=== PATIENT | male | born 1950 | race Caucasian/White ===

== ENCOUNTER 2019-02-10 17:37 | Inpatient (IN) | payer MEDICARE ==
[~2019-02-10] VITALS: Ht 177.8 cm; Wt 78.0 kg
--- NOTE | ~2019-02-10 | CON ---
[place], [place] REPORT OF CONSULTATION [id number] UNIT #: [id number] ROOM: 312 DOCTOR: AMAURI VOGEL ED.D (RAMON) BIRTHDATE: [birth year] DOS: HISTORY OF PRESENT ILLNESS: The patient is a 68-year-old male referred by Dr. Juarez for an evaluation regarding his attention-deficit issues. At the present time, this patient is on the [facility] at [facility]. He states he is a , his having committed suicide when she was in her 30s. He does have one daughter. He formerly worked at a local [employer]. His medical history is pertinent for asthma, BPH, coronary artery disease, COPD, hypertension, history of myocardial infarction, migraine headaches, peripheral vascular disease, atrial fibrillation and bipolar 1 -- mixed. His psych medications at the present time include Latuda, Klonopin and Cymbalta. He denies any significant substance abuse issues. This patient was awake, alert and oriented in all three spheres. He was extremely manic throughout the interview. He indicated that he wanted to talk to me about possibly receiving medications for his hyperactivity. I did explain to the patient that prior to any type of an evaluation for hyperactivity, all of the issues regarding his bipolar disorder needed to be addressed. He is extremely manic at this time, which would mimic symptoms of hyperactivity, but most likely his issues are related to his bipolar disorder. He states that he understands my recommendation that we would not consider any type of additional medications until he is medically stable. He is probably going to a different facility once he is discharged from the hospital and following with outpatient psychotherapy. At that time, possibly an evaluation of his ADHD would be warranted; however, it is unlikely that he will actually meet criteria for ADHD. DIAGNOSIS: Bipolar 1 disorder -- mixed. RECOMMENDATIONS: In my opinion, this patient should not be given any additional medications for his hyperactivity due to the fact he is not medically stable regarding his bipolar disorder. Thank you very much for this consult. AMAURI VOGEL ED.D CM:CONSTR:REPORT OF CONSULTATION 144 02/11/191928 interface SOFIA JUAREZ MD
--- NOTE | ~2019-02-10 | WRIGHTHP ---
[place], [place] PATIENT HISTORY AND PHYSICAL EXAM NAME: JAMAL MONTE [facility] #: [id number] UNIT #: [id number] ROOM: 314 DOCTOR: SOFIA JUAREZ MD BIRTHDATE: [birth year] DOS: 02/11/2019 CHIEF COMPLAINT: "Oh Dr. Juarez this bipolar disorder is so difficult and I hate that [place], I don't want to go back to that hell [facility]." HISTORY OF PRESENT ILLNESS: This is a 68-year-old white male known to me from previous admissions here to the [facility] as well as his stay at [facility] in [place], [place]. The patient has a lengthy history of bipolar disorder and most lately he has been exhibiting signs of mixed bipolar. The patient of late has been increasingly irritable and angry, volatile and profane. He has been threatening to staff and has been threatening to himself. He has not been sleeping or eating well and he has voiced suicidal thoughts as well as homicidal thoughts. He is admitted now to rule out organic factors to attempt to stabilize on medication and to find alternative placement if necessary. PAST MEDICAL HISTORY: Remarkable for asthma, benign prostatic hyperplasia, coronary artery disease, COPD, hypertension, multiple myocardial infarctions, TIAs, hyperlipidemia, neuropathy, migraine headaches, osteoarthritis, atrial fibrillation, peripheral vascular disease and spinal stenosis. SOCIAL HISTORY: The patient socially does not use illicit drugs, smoke cigarettes or drink alcohol. ALLERGIES: LISTED TO OXYCODONE, AMPICILLIN, SULFA AND PENICILLINS. STRENGTHS: Good verbal skills, ambulatory. WEAKNESSES: Chronic mental health issues, poor coping skills. MENTAL STATUS: He is alert and oriented to person, place, and time. Mood is mixed. Initially during my interview he was very depressed and sullen. He quickly became hyperverbal and almost pressured jumping from topic to topic with multiple questions being asked. He does exhibit signs of both depression and chely. There is no gross psychosis. There are no auditory or visual hallucinations. No delusions, no paranoia. Memory for the most part is intact. DIAGNOSES: Bipolar type 1, mixed state. PLAN: I have already discontinued his Seroquel in lieu of Latuda 40 mg at bedtime, which I will now doubled to 80 mg at bedtime. I will restart him on his Klonopin. He had done extremely well with this in the past. It helped both with anxiety and mood stability. I will increase Klonopin now to 1 mg t.i.d. He also reports having done very well with the antidepressant Cymbalta. I will restart Cymbalta 30 mg at bedtime. He offers many complaints of pain, especially now in his neck and back. I will go ahead and order Zostrix high potency cream t.i.d. and defer to the hospitalist for any further management. PT, OT will be consulted and psychological testing will be done. [place], [place] PATIENT HISTORY AND PHYSICAL EXAM NAME: JAMAL MONTE [facility] UNIT #: [id number] ROOM: [facility] DOCTOR: SOFIA JUAREZ MD BIRTHDATE: [birth year] SOFIA JUAREZ MD CM:HISPHYS:PATIENT HISTORY AND PHYSICAL EXAMINATION 7 7 SOFIA JUAREZ MD 02/11/1939 interface
--- NOTE | ~2019-02-10 | PR ---
[place], [place] PROGRESS NOTE [id number] UNIT #: [id number] ROOM: 312 DOCTOR: BEBA DONALDSON CNP BIRTHDATE: [birth year] DOS: 02/13/2019 CHIEF COMPLAINT: "What are you going to give me today." SUMMARY OF THE VISIT: The patient was interviewed as he sat in the dining room, eating his breakfast. The patient reports that he slept well last night. He reports that he feels somewhat anxious, requesting more Klonopin. The patient reports to me once he finishes physical therapy, he plans to return to his apartment. He reports that the long-term care facility where he was receiving physical therapy was having him room with two other patients; however, I do know that the patient had a private room there because I have seen him at that facility. Staff reports that the patient was somewhat manic yesterday; however, throughout the evening and this morning, he has been very pleasant and cooperative. No increased behaviors noted. The patient has been taking medications as prescribed. MENTAL STATUS EXAMINATION: The patient is alert and oriented to person, place and time. He was pleasant and cooperative with me. No overt chely or hypomania noted at the time of interview. No auditory or visual hallucinations noted. No paranoia or delusions noted. The patient's mood was calm. Affect is congruent with mood. PLAN: We will continue the patient's medications as prescribed. Monitor for effectiveness and side effects. The plan will be to eventually increase the patient's Cymbalta to 60 mg twice daily. Continue to encourage the patient to engage in individual and chawla milieu activity. Continue fall and safety precautions. Plan is to return the patient to the least restrictive environment once he is considered psychiatrically stable. Beba Donaldson CNP CM:PNTRANS 5 8 BEBA DONALDSON CNP 02/13/19928 interface
--- NOTE | ~2019-02-10 | PR ---
[place], [place] PROGRESS NOTE NAME: JAMAL MONTE UNIT #: [id number] ROOM: 312 DOCTOR: BESSY ANGLIN DO BIRTHDATE: [birth year] DOS: 02/12/2019 CHIEF COMPLAINT: "Morning. Nice to meet you." SUMMARY OF VISIT: The patient is interviewed in the dining giraldo while sitting in his wheelchair. He states that last night was not good for him and he had a couple of issues. He mentioned he spoke with the daughter and she did not want him to go back to his apartment, prefers for him to be in [facility]. He states then after that conversation he is starting to think about his purpose in life and he could not find any. He mentioned he does not want to go back to [place], otherwise he will end his life. He was preferred to go home if possible, but would be willing to try another rehab facility short term if it is warranted. He states he would like to be on more pain medication. Per nursing, the patient slept about 7 hours last night. He refused labs this morning and refused his blood pressure medications last night. The staff also noticed he appeared to isolate himself in his room. MENTAL STATUS EXAMINATION: He is alert and oriented x 3. His mood is very labile. He is exhibiting both depression and chely. There is no gross psychosis. There is some situational suicidal ideation due to him stating that he would not live anymore if he went back to [place]. There are no auditory or visual hallucinations. No delusions or paranoia. Memory for the most part is intact. PLAN: Discontinue Zostrix, increase Cymbalta to 30 mg b.i.d. Our plan is to actually increase Cymbalta to 60 mg b.i.d. eventually, we will also have Vistaril 50 mg q.i.d. available. We will continue to monitor and support and engage in individual and chawla milieu activity, returning to the least restrictive environment when psychiatrically stable. Bessy Anglin DO [place], [place] PROGRESS NOTE NAME: JAMAL MONTE UNIT #: [id number] ROOM: 312 DOCTOR: BESSY ANGLIN DO BIRTHDATE: [birth year] SOFIA JUAREZ MD CM:CHUCK 1030 BESSY ANGLIN DO 02/12/19 1341 interface
--- NOTE | ~2019-02-10 | DS ---
[place], [place] DISCHARGE SUMMARY [id number] UN[facility] #: [id number] ROOM: 312 DOCTOR: SOFIA JUAREZ MD BIRTHDATE: [birth year] DOS: 02/16/2019 CHIEF COMPLAINT: "Oh doctor, Paulo, this bipolar disorder is so difficult and I hate that [place]. [facility] HISTORY OF PRESENT ILLNESS: This is a 68-year-old white male known to me from previous admissions here to the [facility] as well as his stay at [facility] in [place], [place]. The patient has a lengthy history of bipolar disorder and most likely has been exhibiting signs of mixed bipolarity. The patient has been increasingly irritable and angry, very volatile and profane. He has been threatening staff as well as threatening himself. He has not been sleeping or eating well and has voiced suicidal thoughts as well as homicidal thoughts. He is readmitted to the [facility] to stabilize on medication, to engage in individual and chawla milieu activity and to determine the least restrictive environment to which he can return. SUMMARY OF HOSPITAL COURSE: The patient was admitted to the unit where his Seroquel was discontinued in lieu of Latuda 40 mg at bedtime. This was very quickly doubled to 80 mg at bedtime. He was also restarted on Cymbalta as he reported that this has been the most successful antidepressant for him. Dose was started at 30 mg at bedtime and over the course of his stay, the dose was rapidly increased to its maximum dose of 60 mg b.i.d. Additionally, he was started on Klonopin 1 mg t.i.d., both as an antianxiety agent, but also as a mood stability administration assistant. The patient tolerated the medicines well. Toward the latter part of his stay, Neurontin 100 mg 3 times daily was added to get some added pain relief. Hospitalist did feel that his pain was not as reported and gradually tapered him off of the opiate. The patient was somewhat medication seeking throughout the latter part of his stay, attempting to get whatever medications he could. The patient, however, did not voice suicidal thoughts, homicidal thoughts or any self-injurious thoughts and voiced a willingness and a readiness to actually return to his home at [place]. The patient was discharged then to his own home. MENTAL STATUS AT DISCHARGE: The patient is alert and oriented to person, place and time. Mood for the most part is euthymic. Affect is appropriate. He denied suicidal, homicidal, or self-injurious thoughts. There was no hypomania or chely noted. There was no gross psychosis. No paranoia. No auditory or visual hallucinations. There was no tardive dyskinesia, extrapyramidal symptoms, sedation or somnolence and memory for the most part was intact. DIAGNOSES AT DISCHARGE: Bipolar type 1, mixed. DISPOSITION: All of his prescriptions have been printed and will be sent with him. He is returning to his own apartment in [place], [place]. building services coordinator will finalize outpatient followup for him. [place], [place] DISCHARGE SUMMARY [facility] [id number] UNIT #: [id number] ROOM: [facility] DOCTOR: SOFIA JUAREZ MD BIRTHDATE: [birth year] SOFIA JUAREZ MD CM:DISCHARG [id number] SOFIA JUAREZ MD 02/16/19 1011 interface
--- NOTE | ~2019-02-10 | PR ---
[place], [place] PROGRESS NOTE NAME: JAMAL MONTE UNIT #: [id number] ROOM: 312 DOCTOR: SOFIA JUAREZ MD BIRTHDATE: [birth year] DOS: 02/15/2019 CHIEF COMPLAINT: "Can you intercede on my behalf doc and get my pain meds back?" SUMMARY OF THE VISIT: The patient was interviewed with the nurse present. The patient was fixated on getting his pain meds back. I carefully explained to him that this was totally a decision made by the hospitalist and that I 100% supported whatever decision they made and that included the prescription or the nonprescribing of opiates. I did discuss with him that I had other options that I could help him with pain control that were not opiate driven and he nodded in approval. We then discussed possible discharge plans as to whether he would go to his apartment and have outpatient PT and OT or go to a long-term care facility other than [place] [facility] for further treatment. We will discuss this further in treatment team and then later discuss more with him. MENTAL STATUS: For the most part, he was alert and oriented. Mood is fairly euthymic and he was much less pressured and much less talkative than previously. The depression also seems to be under control and there are no gross psychotic symptoms. He denies true suicidality, homicidality or self-injurious behavior. PLAN: I will go ahead and maximize out the dose of Cymbalta to 60 mg b.i.d. and add Neurontin 100 mg t.i.d. in an effort to help with pain control and also to stabilize his mood. We will engage in individual and chawla milieu activity, returning to the least restrictive environment when psychiatrically stable. SOFIA JUAREZ MD CM:PNTRANS 1015 [id number] SOFIA JUAREZ MD 02/15/19 1145 interface
[~2019-02-10 17:37] MED LIST: ADVAIR HFA 115-12 GM INH; AMBIEN5 MG PO; ASPIR LOW81 MG PO; ATORVASTATIN CA10 M1 PO; CARAFATE1 GM/10 ML PO; CLONAZEPAM1 MG PO; COL-RITE100 M1 PO; CYMBALTA30 MG PO; CYMBALTA60 MG PO; DOCUSATE SODIU100 M2 PO; DULOXETINE HCL60 MG PO; ESOMEPRAZOLE MA40 M1 PO; FLONASE ALLERG9.9 ML NAS; GABAPENTIN400 MG PO; GAS-X80 MG PO; GLUCOPHAGE500 M1 PO; HALDOL5 MG PO; HYDROXYZINE PAM25 M1 PO; IMDUR SA60 M1 PO; IMITREX50 MG PO; ISOSORBIDE MONO60 MG PO; Ipratropium Brom3 ML INH; KENALOG 0.1%80 GM T; KLONOPIN0.5 MG PO; KLOR-CON M2020 ME1 PO; LATU80TA PO; LISINOPRIL10 M1 PO; LOPRESSOR50 M1 PO; LOTRISONE 0.05%15 GM PO; Lovenox40 MG/0.4 PO; MECLIZINE HCL25 M2 PO; MINIPRESS1 M1 PO; NITROSTAT0.4 MG SL; NORCO 5-325 TA1 EACH PO; PLAVIX75 M1 PO; PROAIR RESPICL90 MCG INH; PROSCAR5 M1 PO; PROTONIX40 MG PO; QUETIAPINE FUMA50 M1 PO; SEROQUEL50 MG PO; TAMSULOSIN HCL0.4 MG PO; VISINE TEARS OPH; VISTARIL50 MG PO; VITAMIN D50000 UNIT PO; VRAYLAR1.5 MG PO; ZANAFLEX4 M1 PO; ZANAFLEX4 M2 PO; [UNRECOGNIZED DRUG - OTHER] MM; [UNRECOGNIZED DRUG - OTHER] RC
[2019-02-10] MEDS ORDERED: ASPIRIN ADULT L81 M1 PO (17:47)
[2019-02-10] MEDS ORDERED: CLONAZEPAM0.5 M2 PO (17:49)
[2019-02-10] MEDS ORDERED: POTASSIUM CHLO20 ME3 PO (17:54)
[2019-02-10] MEDS ORDERED: Motrin,Rufen800 MG PO (17:56)
[2019-02-10] MEDS ORDERED: PRAZOSIN HCL1 MG PO (17:57)
[2019-02-10 19:54] VITALS: BP 136/100
[2019-02-10 20:15] VITALS: BP 138/82
[2019-02-10 21:00] VITALS: BP 138/82
[2019-02-11 07:24] LABS: ALBUMIN 3.7 gm/dl (3.1-4.5); CHLORIDE 108 mmol/L (98-107); CHOLESTEROL 115 mg/dL (<200); SGPT/ALT 24 U/L (12-78); SODIUM 141 mmol/L (136-145); TRIGLYCERIDES 70 mg/dl (<150); VLDL CHOLESTEROL 14 mg/dL (6-40)
[2019-02-11 07:32] LABS: ALKALINE PHOSPHATASE 73 U/L (45-117); BUN 24 mg/dl (7-24); CREATININE 1.32 mg/dL (0.70-1.30); HDL CHOLESTEROL 33 mg/dl (40-60); LDL CHOLESTEROL 68 mg/dL (9-159); SGOT/AST 18 IU/L (3-35); THYROID STIM HORMONE (HS) 0.474 uIU/ml (0.358-4.75); TOTAL PROTEIN 7.3 gm/dL (6.4-8.2)
[2019-02-11 07:52] LABS: VITAMIN D, 25-HYDROXY 53.8 ng/mL (30-100)
[2019-02-11 08:04] VITALS: BP 141/66
[2019-02-11 20:24] VITALS: BP 110/72
[2019-02-12 07:44] VITALS: BP 145/87
[2019-02-12] MEDS ORDERED: KENALOG 0.1%80 GM T (14:59)
[2019-02-12] MEDS ORDERED: KETOCONAZOLE 1120 M1 T (15:01)
[2019-02-12 19:03] LABS: BILIRUBIN NEGATIVE (NEGATIVE); BLOOD NEGATIVE (NEGATIVE); CLARITY CLEAR (CLEAR); COLOR YELLOW (YELLOW); GLUCOSE NEGATIVE (NEGATIVE); KETONE NEGATIVE (NEGATIVE); LEUKO ESTERASE NEGATIVE (NEGATIVE); NITRITE NEGATIVE (NEGATIVE); PH 5.5 (5.0-9.0); SPECIFIC GRAVITY 1.025 (1.005-1.030); UROBILINOGEN 0.2 E.U./dl (0.2-1.0)
[2019-02-12 19:13] LABS: EPITHELIAL CELLS 0-2; WBC 0-2 wbc/hpf (0-5)
[2019-02-12 19:35] VITALS: BP 113/72
[2019-02-13 07:37] VITALS: BP 128/77
[2019-02-13 20:00] VITALS: BP 130/74
[2019-02-14 07:05] VITALS: BP 140/64
[2019-02-15 08:54] VITALS: BP 111/86
[2019-02-15 11:15] VITALS: BP 134/66
[2019-02-15 20:00] VITALS: BP 110/72
[2019-02-16 07:39] VITALS: BP 129/70
[2019-02-16] MEDS ORDERED: ATARAX,VISTARIL50 MG PO (09:27)
[2019-02-16] MEDS ORDERED: CLONAZEPAM1 MG PO (09:27)
[2019-02-16] MEDS ORDERED: GABAPENTIN100 M2 PO (09:27)
[2019-02-16] MEDS ORDERED: LATU80TA PO (09:27)
[2019-02-16] MEDS ORDERED: DULOXETINE HCL60 MG PO (09:27)
[2019-02-16] MEDS ORDERED: VICODIN 5-3001 EACH PO (12:10)
[2019-02-16] MEDS ORDERED: WALKER DEVI (12:46)
== END 2019-02-16 14:58 | disposition home or self-care (01) | DRG 885 ==
LOC: 3N 17:37
PROVIDERS: ADMIT Psychiatry & Neurology Psychiatry
DX: F31.60 Bipolar disorder, current episode mixed, unspecified (principal); N17.0 Acute kidney failure with tubular necrosis; E11.52 Type 2 diabetes mellitus with diabetic peripheral angiopathy with gangrene; F23 Brief psychotic disorder; I10 Essential (primary) hypertension; I25.10 Atherosclerotic heart disease of native coronary artery without angina pectoris; E11.41 Type 2 diabetes mellitus with diabetic mononeuropathy; N40.0 Benign prostatic hyperplasia without lower urinary tract symptoms; E87.8 Other disorders of electrolyte and fluid balance, not elsewhere classified; E78.5 Hyperlipidemia, unspecified; M19.90 Unspecified osteoarthritis, unspecified site; G43.909 Migraine, unspecified, not intractable, without status migrainosus; I48.0 Paroxysmal atrial fibrillation; M48.00 Spinal stenosis, site unspecified; J44.9 Chronic obstructive pulmonary disease, unspecified; Z95.5 Presence of coronary angioplasty implant and graft; I25.2 Old myocardial infarction; Z86.73 Personal history of transient ischemic attack (TIA), and cerebral infarction without residual deficits; S82.91XD Unspecified fracture of right lower leg, subsequent encounter for closed fracture with routine healing; Z88.6 Allergy status to analgesic agent; Z88.1 Allergy status to other antibiotic agents; Z88.2 Allergy status to sulfonamides; Z88.0 Allergy status to penicillin; Z79.899 Other long term (current) drug therapy; Z79.82 Long term (current) use of aspirin